=== PATIENT | female | born 1970 | race Caucasian/White ===

== ENCOUNTER 2016-06-03 15:36 | Emergency (ER) | payer SELFPAY ==
[~2016-06-03] VITALS: Ht 162.6 cm; Wt 60.5 kg
[~2016-06-03 15:36] MED LIST: IBUP600T26 PO; ONDA4 PO
[2016-06-03 15:38] VITALS: BP 142/90; PULSE 85; RESP 14; TEMP 98; O2SAT 98
[2016-06-04] MEDS ORDERED: MULTCHW27 PO (07:34)
[2016-06-04] MEDS ORDERED: IBUP-232 PO (07:35)
[2016-06-04] MEDS ORDERED: ZOFR4TAB3 SL (10:10)
[2016-06-04] MEDS ORDERED: IMOD2TAB3 PO (10:10)
[2016-06-04] MEDS ORDERED: POTA1TAB4 PO (10:10)
== END 2016-06-03 17:05 | disposition left against medical advice (07) ==
LOC: NED 15:36
DX: K92.9 Disease of digestive system, unspecified (principal)
CPT/HCPCS: 99281

== ENCOUNTER 2016-06-04 07:13 | Emergency (ER) | payer SELFPAY ==
[~2016-06-04] VITALS: Ht 162.6 cm; Wt 65.0 kg
[2016-06-04 07:15] VITALS: BP 182/108; PULSE 87; RESP 15; TEMP 97.4; O2SAT 97
[2016-06-04] MEDS ORDERED: MULTCHW27 PO (07:34)
[2016-06-04 07:35] VITALS: BP 167/103; PULSE 68; RESP 20; O2SAT 100
[2016-06-04] MEDS ORDERED: IBUP-232 PO (07:35)
[2016-06-04] MEDS ORDERED: ONDANSETRON HCL 4 MG/2 ML VIAL IV PUSH ONE (07:45)
[2016-06-04] MEDS ORDERED: SODIUM CHLOR 0.9% 1000 ML INJ 1,000 ML IV ONE (07:45)
--- NOTE | 2016-06-04 07:52 | PD ---
HPI Chief Complaint: GI Complaint Time Seen by Provider: 07:45 Travel History International Travel<30 days: No Contact w/Intl Traveler<30days: No Traveled to known affect area: No History of Present Illness HPI 46-year-old female with history of alcohol use, presents to the ER today because she states that she started having periumbilical cramping with nausea, vomiting, diarrhea starting yesterday. Denies any fevers, urinary symptoms, or any other symptoms. She does not know any sick contacts. Modifying Factors: None Associated Signs & Symptoms: Periumbilical abdominal pain, nausea, vomiting, diarrhea Risk Factors: None PFSH Past Medical History Arthritis: Yes Autoimmune Disease: No Cancer: No Cardiovascular Problems: No Chemotherapy: No Diminished Hearing: No Endocrine: No Gastrointestinal Disorders: Yes (HX E COLI) Genitourinary: Yes (PT STS "KIDNEY PROBLEMS") Headaches: Yes Immune Disorder: No Musculoskeletal: Yes Neurologic: No Psychiatric: No Reproductive: No Respiratory: No Pneumonia: Yes (?) Radiation Therapy: No ?: Not LMP: 2 MONTHS AGO : 3 Para: 1 : 2 Past Surgical History AICD: No Arteriovenous Shunt: No Body Medical Devices: "HYPERGLYCEMIA" Section: Yes (X 1) Gynecologic Surgery: Yes (C-SEC) Insulin Pump: No Joint Replacement: No Pacemaker: No Other Surgery: Yes Social History Alcohol Use: No Tobacco Use: Yes (1 PPD) Substance Use: No (HX OF COCAINE USE) Allergies-Medications (Allergen,Severity, Reaction): Coded Allergies: No Known Allergies (Verified , 06/04/16) Reported Meds & Prescriptions Reported Meds & Active Scripts Active Reported Ibuprofen 600 Mg Tab 600 Mg PO Q8HR PRN Multivitamin Gummies Adul (Multiple Vitamins W/ Minerals) 1 Chw Chw 1 Chew PO DAILY Review of Systems Except as stated in HPI: all other systems reviewed are Neg Physical Exam Narrative GENERAL: Well-nourished, well-developed middle-aged white female patient in no acute distress. SKIN: Warm and dry. HEAD: Normocephalic. EYES: No scleral icterus. No injection or drainage. NECK: Supple, trachea midline. CARDIOVASCULAR: Regular rate and rhythm without murmurs, gallops, or rubs. RESPIRATORY: Breath sounds equal bilaterally. No accessory muscle use. GASTROINTESTINAL: Abdomen soft, periumbilical mild tenderness without guarding or rebound, nondistended. MUSCULOSKELETAL: No cyanosis, or edema. BACK: Nontender without obvious deformity. No CVA tenderness. Data Data Last Documented VS Vital Signs Date Time Temp Pulse Resp B/P Pulse Ox O2 Delivery O2 Flow Rate FiO2 06/04/16 09:23 77 21 152/100 99 Room Air 06/04/16 07:15 97.4 Orders Complete Blood Count With Diff (06/04/16 07:40) Comprehensive Metabolic Panel (06/04/16 07:40) Lipase (06/04/16 07:40) Urinalysis - C+S If Indicated (06/04/16 07:40) Iv Access Insert/Monitor (06/04/16 07:40) Ecg Monitoring (06/04/16 07:40) Oximetry (06/04/16 07:40) Sodium Chloride 0.9% Flush (Ns Flush) (06/04/16 07:45) Sodium Chlor 0.9% 1000 Ml Inj (Ns 1000 M (06/04/16 07:45) Ondansetron Inj (Zofran Inj) (06/04/16 07:45) Ct Abd/Pel W Iv Contrast(Rout) (06/04/16 08:33) Ns + Kcl 20 Meq Inj (Ns + Kcl 20 Meq Inj (06/04/16 09:00) Iohexol 350 Inj (Omnipaque 350 Inj) (06/04/16 09:37) Labs Laboratory Tests Test 06/04/16 06/04/16 07:35 07:40 White Blood Count 12.6 TH/MM3 Red Blood Count 4.89 MIL/MM3 Hemoglobin 14.8 GM/DL Hematocrit 44.1 % Mean Corpuscular Volume 90.0 FL Mean Corpuscular Hemoglobin 30.2 PG Mean Corpuscular Hemoglobin 33.6 % Concent Red Cell Distribution Width 13.5 % Platelet Count 207 TH/MM3 Mean Platelet Volume 9.2 FL Neutrophils (%) (Auto) 80.6 % Lymphocytes (%) (Auto) 12.4 % Monocytes (%) (Auto) 4.9 % Eosinophils (%) (Auto) 1.4 % Basophils (%) (Auto) 0.7 % Neutrophils # (Auto) 10.2 TH/MM3 Lymphocytes # (Auto) 1.6 TH/MM3 Monocytes # (Auto) 0.6 TH/MM3 Eosinophils # (Auto) 0.2 TH/MM3 Basophils # (Auto) 0.1 TH/MM3 CBC Comment DIFF FINAL Differential Comment Sodium Level 141 MEQ/L Potassium Level 2.9 MEQ/L Chloride Level 106 MEQ/L Carbon Dioxide Level 27.5 MEQ/L Anion Gap 8 MEQ/L Blood Urea Nitrogen 9 MG/DL Creatinine 0.67 MG/DL Estimat Glomerular Filtration 94 ML/MIN Rate Random Glucose 87 MG/DL Calcium Level 9.0 MG/DL Total Bilirubin 0.5 MG/DL Aspartate Amino Transf 16 U/L (AST/SGOT) Alanine Aminotransferase 15 U/L (ALT/SGPT) Alkaline Phosphatase 73 U/L Total Protein 7.9 GM/DL Albumin 3.7 GM/DL Lipase 106 U/L Urine Color YELLOW Urine Turbidity CLEAR Urine pH 6.5 Urine Specific [place] 1.008 Urine Protein NEG mg/dL Urine Glucose (UA) NEG mg/dL Urine Ketones NEG mg/dL Urine Occult Blood NEG Urine Nitrite NEG Urine Bilirubin NEG Urine Urobilinogen LESS THAN 2.0 MG/DL Urine Leukocyte Esterase NEG Urine WBC 2 /hpf Urine Squamous Epithelial 1 /hpf Cells Microscopic Urinalysis Comment CULT NOT INDICATED MDM Medical Decision Making Medical Screen Exam Complete: Yes Emergency Medical Condition: Yes Medical Record Reviewed: Yes Interpretation(s) Laboratory Tests Test 06/04/16 07:35 White Blood Count 12.6 TH/MM3 (4.0-11.0) Neutrophils (%) (Auto) 80.6 % (16.0-70.0) Neutrophils # (Auto) 10.2 TH/MM3 (1.8-7.7) Potassium Level 2.9 MEQ/L (3.5-5.1) Last 24 hours Impressions Abdomen/Pelvis CT 06/04/16 0833 Signed Impressions: Service Date/Time: Saturday, June 04, 2016 09:30 - CONCLUSION: 1. No acute findings within the abdomen. Specifically no inflammatory changes are seen. No evidence for appendicitis. 2. There is recanalization of periumbilical veins which can be an early sign of portal hypertension. Liver has a slightly lobulated appearance that could indicate some early liver cirrhosis as well. Roger Julio MD Differential Diagnosis Nausea, vomiting, diarrhea, abdominal painsgastroenteritis versus pancreatitis versus gastritis versus metabolic issues versus dehydration Narrative Course Lab work is significant for leukocytosis and hypokalemia. IV potassium was given in the ER. CAT scan was done to rule out acute intra-abdominal processes and did not show any signs of acute processes. At this point, my plan would be to release her with symptomatic relief or nausea and vomiting and cramping abdominal pains. Follow-up with primary care physician as needed. Return for any worsening in symptoms as needed. The plan has been discussed with her and she states understanding. Diagnosis Primary Impression: UNSPECIFIED ABDOMINAL PAIN Med/Other Pt SpecificInfo: Prescription(s) given Scripts Potassium Chloride ER (K-Tab)20 Meq Tab20 Meq PO BID #10 TAB Ref 0 Prov:Milly De La Garza MD 06/04/16 Ondansetron Odt (Zofran Odt)4 Mg Tab4 Mg SL Q6HR PRN (Nausea/Vomiting) #5 TAB Ref 0 Prov:Milly De La Garza MD 06/04/16 Loperamide (Imodium A-D)2 Mg Tab2 Mg PO DIRECTED PRN (DIARRHEA) #15 TAB Ref 0 One tablet after each loose stool. Not to exceed 8 tablets per day. Prov:Milly De La Garza MD 06/04/16 Disposition: 01 DISCHARGE HOME Condition: Stable Milly De La Garza MD Jun 04, 2016 07:52
[2016-06-04 08:00] VITALS: O2SAT 100
[2016-06-04] MEDS: SODIUM CHLORIDE 0.9% FLUSH 5 ML FLUSH IVF PRN ×2 (08:04→09:07)
[2016-06-04 08:23] LABS: BLOOD, URINE NEG (NEG); GLUCOSE,URINE NEG (NEG); KETONE, URINE NEG (NEG); NITRITE,URINE NEG (NEG); PH, URINE 6.5 (5.0-8.5); SQUAMOUS EPITHELIAL CELL URINE 1 /hpf (0-5); URINE COLOR YELLOW (YELLW/STRAW)
[2016-06-04 08:24] LABS: AUTOMATED NEUTROPHIL # 10.2 TH/MM3 (1.8-7.7); BASOPHIL # 0.1 TH/MM3 (0-0.2); BASOPHIL % 0.7 % (0.0-2.0); EOSINOPHIL # 0.2 TH/MM3 (0-0.4); EOSINOPHIL % 1.4 % (0.0-4.0); HEMATOCRIT 44.1 % (35.0-46.0); HEMO FLAGS DIFF FINAL; LYMPH % 12.4 % (9.0-44.0); LYMPHOCYTE # 1.6 TH/MM3 (1.0-4.8); MEAN CORPUSCULAR HEMOGLOBIN 30.2 PG (27.0-34.0); MEAN CORPUSCULAR HGB CONC 33.6 % (32.0-36.0); MONO % 4.9 % (0.0-8.0); NEUT % 80.6 % (16.0-70.0); PLATELET COUNT 207 TH/MM3 (150-450); RED BLOOD COUNT 4.89 MIL/MM3 (4.00-5.30); RED CELL DISTRIBUTION WIDTH 13.5 % (11.6-17.2); WHITE BLOOD COUNT 12.6 TH/MM3 (4.0-11.0)
[2016-06-04 08:28] LABS: COMMENT (UR) CULT NOT INDICATED; CULTURE IF INDICATED CULT NOT INDICATED
[2016-06-04 08:47] LABS: ALT (GPT) 15 U/L (10-53); ANION GAP 8 MEQ/L (5-15); AST (GOT) 16 U/L (15-37); BICARBONATE 27.5 MEQ/L (21.0-32.0); BLOOD UREA NITROGEN 9 MG/DL (7-18); CHLORIDE 106 MEQ/L (98-107); GLOMERULAR FILTRATION RATE 94 ML/MIN (>89); SODIUM (NA) 141 MEQ/L (136-145)
[2016-06-04 08:50] LABS: POTASSIUM 2.9 MEQ/L (3.5-5.1)
[2016-06-04 08:55] LABS: ALKALINE PHOSPHATASE 73 U/L (45-117); TOTAL BILIRUBIN ADULT 0.5 MG/DL (0.2-1.0)
[2016-06-04] MEDS ORDERED: NS + KCL 20 MEQ INJ 1,000 ML IV ONE (09:00)
[2016-06-04 09:23] VITALS: BP 152/100; PULSE 77; RESP 21; O2SAT 99
[2016-06-04] MEDS ORDERED: IOHEXOL 350 MG/ML 10 ML VIAL (for RAD DIAG) IV ONE (09:37)
--- NOTE | 2016-06-04 09:56 | RADRPT ---
EXAM DATE/TIME: 06/04/2016 09:30 [facility] COMPARISON: CT ABDOMEN & PELVIS W/O CONTRAST, February 22, 2010, 15:10. INDICATIONS : [place]-umbilical cramping with nausea, vomiting, and diarrhea since yesterday. IV CONTRAST: 92 cc Omnipaque 350 (iohexol) IV ORAL CONTRAST: No oral contrast ingested. RADIATION DOSE: 5.28 CTDIvol (mGy) MEDICAL HISTORY : None SURGICAL HISTORY : section. ENCOUNTER: Initial ACUITY: 1 day PAIN SCALE: 5/10 LOCATION: [place]-umbilical TECHNIQUE: Volumetric scanning of the abdomen and pelvis was performed. Using automated exposure control and ad justment of the mA and/or kV according to patient size, radiation dose was kept as low as reasonably achievable to obtain optimal diagnostic quality images. FINDINGS: Lung bases demonstrate some dependent atelectasis and subsegmental atelectasis or scarring in the rig ht middle. Mild fatty liver. Spleen, adrenals and pancreas unremarkable. Exophytic cyst lower pole left kidney. Mild right renal atrophic change. No calcified gallstones or biliary ductal dilatation. No bowel obstruction. No free fluid or free air . There is some recanalization of the periumbilical veins which can be seen with early changes of funmi l hypertension. CONCLUSION: 1. No acute findings within the abdomen. Specifically no inflammatory changes are seen. No evidence f or appendicitis. 2. There is recanalization of periumbilical veins which can be an early sign of portal hypertension. Liver has a slightly lobulated appearance that could indicate some early liver cirrhosis as well. Roger Julio MD on June 04, 2016 at 9:47 Board Certified Radiologist. This report was verified electronically.
[2016-06-04 10:00] VITALS: BP 159/97; PULSE 78; RESP 24; O2SAT 99
[2016-06-04] MEDS ORDERED: IMOD2TAB3 PO (10:10)
[2016-06-04] MEDS ORDERED: ZOFR4TAB3 SL (10:10)
[2016-06-04] MEDS ORDERED: POTA1TAB4 PO (10:10)
[2016-06-04 11:00] VITALS: BP 152/89; PULSE 84; RESP 25; O2SAT 96
== END 2016-06-04 11:51 | disposition home or self-care (01) ==
LOC: NEPC 07:13
DX: R10.9 Unspecified abdominal pain (principal); D72.829 Elevated white blood cell count, unspecified; E87.6 Hypokalemia; R11.2 Nausea with vomiting, unspecified; R19.7 Diarrhea, unspecified; F17.200 Nicotine dependence, unspecified, uncomplicated; Z87.39 Personal history of other diseases of the musculoskeletal system and connective tissue; Z87.19 Personal history of other diseases of the digestive system
CPT/HCPCS: 74177; 80053; 81001; 83690; 85025; 96361; 96374; 99284; J2405; J3480; J7030; Q9967

== ENCOUNTER 2016-06-27 08:15 | Emergency (ER) | payer SELFPAY ==
[~2016-06-27] VITALS: Ht 162.6 cm; Wt 59.1 kg
[~2016-06-27 08:15] MED LIST changes: +IBUP-232 PO; -IBUP600T26 PO; +IMOD2TAB3 PO; +MULTCHW27 PO; -ONDA4 PO; +POTA1TAB4 PO; +ZOFR4TAB3 SL
[2016-06-27 08:20] VITALS: BP 149/104; PULSE 79; RESP 16; TEMP 97.4; O2SAT 100
--- NOTE | 2016-06-27 08:33 | PD ---
HPI Chief Complaint: [employer] Problem/Complaint Time Seen by Provider: 08:33 Travel History International Travel<30 days: No Contact w/Intl Traveler<30days: No Traveled to known affect area: No History of Present Illness HPI 46-year-old female came to the emergency room with history of right lower quadrant pain for past 1 week. Patient describes the pain to be nagging and always there. No history of vomiting or diarrhea. She has been somewhat constipated for past 1 week. She says she has been moving her bowels every other day but does not feel like she is cleaning herself up completely. No history of fever or chills. Her appetite has been great as per her. Her mother and grandmother from ovarian cancer which is what is bothering her a lot. Vital signs were stable. Patient does not have a primary care or [facility] physician. She describes the pain to be 4 out of 10. No radiation of the pain. PFSH Past Medical History Narrative Medical Mr. for past medical, social and family history has been reviewed from the nursing note. Arthritis: Yes Autoimmune Disease: No Cancer: No Cardiovascular Problems: No Chemotherapy: No Diminished Hearing: No Endocrine: No Gastrointestinal Disorders: Yes (HX E COLI) Genitourinary: Yes (PT STS "KIDNEY PROBLEMS") Headaches: Yes Immune Disorder: No Musculoskeletal: Yes Neurologic: No Psychiatric: No Reproductive: No Respiratory: No Pneumonia: Yes (?) Radiation Therapy: No ?: Not LMP: 3 years ago : 3 Para: 1 : 2 Past Surgical History AICD: No Arteriovenous Shunt: No Body Medical Devices: "HYPERGLYCEMIA" Section: Yes (X 1) Gynecologic Surgery: Yes (C-SEC) Insulin Pump: No Joint Replacement: No Pacemaker: No Other Surgery: Yes Family History Narrative Family History Patient's mother and maternal grandmother of ovarian cancer. Social History Alcohol Use: No Tobacco Use: Yes (1 PPD) Substance Use: No (HX OF COCAINE USE) Allergies-Medications (Allergen,Severity, Reaction): Coded Allergies: No Known Allergies (Verified , 06/27/16) Comments No known drug allergies. Reported Meds & Prescriptions Reported Meds & Active Scripts Active No Active Prescriptions or Reported Medications Narrative Medication List of her home medications reviewed from the nursing note. Review of Systems Except as stated in HPI: all other systems reviewed are Neg Physical Exam Narrative GENERAL: Awake, alert, anxious, no obvious distress SKIN: Warm and dry. HEAD: Atraumatic. Normocephalic. EYES: Pupils equal and round. No scleral icterus. No injection or drainage. ENT: No nasal bleeding or discharge. Mucous membranes pink and moist. NECK: Trachea midline. No JVD. CARDIOVASCULAR: Regular rate and rhythm. No murmur appreciated. RESPIRATORY: No accessory muscle use. Clear to auscultation. Breath sounds equal bilaterally. GASTROINTESTINAL: Abdomen soft, right lower quadrant tenderness on moderate palpation, nondistended. Hepatic and splenic margins not palpable. MUSCULOSKELETAL: No obvious deformities. No clubbing. No cyanosis. No edema. NEUROLOGICAL: Awake and alert. No obvious cranial nerve deficits. Motor grossly within normal limits. Normal speech. PSYCHIATRIC: Appropriate mood and affect; insight and judgment normal. Data Data Last Documented VS Orders Urinalysis - C+S If Indicated (06/27/16 08:19) Complete Blood Count With Diff (06/27/16 08:41) Comprehensive Metabolic Panel (06/27/16 08:41) Lipase (06/27/16 08:41) Iv Access Insert/Monitor (06/27/16 08:41) Ecg Monitoring (06/27/16 08:41) Oximetry (06/27/16 08:41) Sodium Chloride 0.9% Flush (Ns Flush) (06/27/16 08:45) C-Reactive Protein (Crp) (06/27/16 08:41) Ed Urine Pregnancytest Poc (06/27/16 08:41) Potassium Chloride (Kcl) (06/27/16 09:30) Ibuprofen (Motrin) (06/27/16 09:30) Us Pelvis Comp W Doppler (06/27/16 ) Labs MDM Medical Decision Making Medical Screen Exam Complete: Yes Emergency Medical Condition: Yes Medical Record Reviewed: Yes Differential Diagnosis Appendicitis, ovarian torsion, ovarian tumor, UTI, abdominal pain NOS Narrative Course 9:26 AM most of her blood work results are back except for the CRP. So far everything is within acceptable limit. UA is negative for UTI. Given her strong family history of ovarian cancer I have ordered a pelvic ultrasound. Awaiting for the ultrasound to be done and resulted. I'll give her Motrin for pain. Potassium was low and I have ordered replacement. 9:50 AM the camera technician is here to do the ultrasound. She let me know the patient had a CAT scan done 2 weeks ago of her abdomen and pelvis. That was within normal limits except for a renal cyst on the left side. I was unaware of this. However at this point waiting for the ultrasound to be completed and resulted. She will be discharged home if the ultrasound is within normal limits. 10:42 AM CRP is back and is slightly elevated. The camera technician left. She told me that she saw a small cyst in her ovary and a calcified fibroid. Awaiting for the official read. Procedures EKG Prior to Arrival: No Diagnosis Primary Impression: Ovarian cyst Qualified Code: N83.201 - Cyst of right ovary Additional Impressions: Pelvic pain Fibroid Qualified Code: D25.1 - Intramural leiomyoma of uterus Referrals: Sophia Hamlin MD 1 week Additional Instructions: Please follow-up with a [facility] specialist. If you don't have your own name has been provided to you. Call the number that has been provided to make an appointment. Take Motrin or Tylenol for pain. Return to the ER if the condition worsens or any other new concerns. Med/Other Pt SpecificInfo: No Change to Meds Scripts No Active Prescriptions or Reported Meds Disposition: 01 DISCHARGE HOME Condition: Stable Helene Fang MD Jun 27, 2016 08:33 Eosinophils # (Auto) 0.1 TH/MM3 Basophils # (Auto) 0.0 TH/MM3 CBC Comment DIFF FINAL Differential Comment Urine Collection Type CLEAN CATCH Urine Color YELLOW Urine Turbidity CLEAR Urine pH 6.0 Urine Specific [place] 1.008 Urine Protein NEG mg/dL Urine Glucose (UA) NEG mg/dL Urine Ketones NEG mg/dL Urine Occult Blood NEG Urine Nitrite NEG Urine Bilirubin NEG Urine Leukocyte Esterase TRACE Urine WBC 6-8 /hpf Urine Squamous Epithelial > 8 /hpf Cells Urine Bacteria FEW /hpf Microscopic Urinalysis Comment CULT NOT INDICATED Urine Collection Time 08:50 Sodium Level 144 MEQ/L Potassium Level 3.1 MEQ/L Chloride Level 106 MEQ/L Carbon Dioxide Level 30.5 MEQ/L Anion Gap 8 MEQ/L Blood Urea Nitrogen 9 MG/DL Creatinine 0.62 MG/DL Estimat Glomerular Filtration 103 ML/MIN Rate Random Glucose 96 MG/DL Calcium Level 8.9 MG/DL Total Bilirubin 0.4 MG/DL Aspartate Amino Transf 15 U/L (AST/SGOT) Alanine Aminotransferase 18 U/L (ALT/SGPT) Alkaline Phosphatase 69 U/L C-Reactive Protein 0.37 MG/DL Total Protein 7.6 GM/DL Albumin 3.3 GM/DL Lipase 128 U/L [facility] Medical Decision Making Medical Screen Exam Complete: Yes Emergency Medical Condition: Yes Medical Record Reviewed: Yes Differential Diagnosis Appendicitis, ovarian torsion, ovarian tumor, UTI, abdominal pain NOS Narrative Course 9:26 AM most of her blood work results are back except for the CRP. So far everything is within acceptable limit. UA is negative for UTI. Given her strong family history of ovarian cancer I have ordered a pelvic ultrasound. Awaiting for the ultrasound to be done and resulted. I'll give her Motrin for pain. Potassium was low and I have ordered replacement. 9:50 AM the camera technician is here to do the ultrasound. She will admit me know the patient had a CAT scan done 2 weeks ago of her abdomen and pelvis. That was within normal limits except for a renal cyst on the left side. I was aware of this. However at this point waiting for the ultrasound to be done and resulted. She will be discharged home if the ultrasound is within normal limits. 10:42 AM CRP is back and is slightly elevated. The camera technician left. She told me that she saw a small cyst in her ovary and a calcified fibroid. Awaiting for the official read. Procedures EKG Prior to Arrival: No Diagnosis Primary Impression: Ovarian cyst Qualified Code: N83.201 - Cyst of right ovary Additional Impressions: Pelvic pain Fibroid Qualified Code: D25.1 - Intramural leiomyoma of uterus Referrals: Sophia Hamlin MD 1 week Additional Instructions: Please follow-up with a [facility] specialist. If you don't have your own name has been provided to you. Call the number that has been provided to make an appointment. Take Motrin or Tylenol for pain. Return to the ER if the condition worsens or any other new concerns. Med/Other Pt SpecificInfo: No Change to Meds Scripts No Active Prescriptions or Reported Meds Disposition: 01 DISCHARGE HOME Condition: Stable Helene Fang MD Jun 27, 2016 08:33
[2016-06-27] MEDS ORDERED: SODIUM CHLORIDE 0.9% FLUSH 5 ML FLUSH IVF PRN (08:45)
[2016-06-27 08:58] LABS: AUTOMATED NEUTROPHIL # 6.8 TH/MM3 (1.8-7.7); BASOPHIL % 0.4 % (0.0-2.0); BLOOD, URINE NEG (NEG); EOSINOPHIL # 0.1 TH/MM3 (0-0.4); EOSINOPHIL % 1.4 % (0.0-4.0); GLUCOSE,URINE NEG (NEG); HEMATOCRIT 42.1 % (35.0-46.0); HEMO FLAGS DIFF FINAL; KETONE, URINE NEG (NEG); LYMPH % 13.9 % (9.0-44.0); LYMPHOCYTE # 1.2 TH/MM3 (1.0-4.8); MEAN CELL VOLUME 88.6 FL (80.0-100.0); MEAN CORPUSCULAR HEMOGLOBIN 29.2 PG (27.0-34.0); MONO % 3.6 % (0.0-8.0); NEUT % 80.7 % (16.0-70.0); NITRITE,URINE NEG (NEG); PLATELET COUNT 200 TH/MM3 (150-450); RED BLOOD COUNT 4.75 MIL/MM3 (4.00-5.30); RED CELL DISTRIBUTION WIDTH 13.1 % (11.6-17.2); WHITE BLOOD COUNT 8.4 TH/MM3 (4.0-11.0)
[2016-06-27 09:06] LABS: CHLORIDE 106 MEQ/L (98-107); POTASSIUM 3.1 MEQ/L (3.5-5.1); SODIUM (NA) 144 MEQ/L (136-145)
[2016-06-27 09:07] LABS: METHOD OF COLLECTION CLEAN CATCH; URINE COLOR YELLOW (YELLW/STRAW)
[2016-06-27 09:08] LABS: BACTERIA, URINE FEW /hpf; COMMENT (UR) CULT NOT INDICATED; CULTURE IF INDICATED CULT NOT INDICATED; SQUAMOUS EPITHELIAL CELL URINE > 8 /hpf (0-5)
[2016-06-27 09:10] LABS: ANION GAP 8 MEQ/L (5-15); BICARBONATE 30.5 MEQ/L (21.0-32.0); BLOOD UREA NITROGEN 9 MG/DL (7-18)
[2016-06-27 09:12] LABS: ALT (GPT) 18 U/L (10-53); AST (GOT) 15 U/L (15-37); GLOMERULAR FILTRATION RATE 103 ML/MIN (>89)
[2016-06-27 09:14] LABS: TOTAL BILIRUBIN ADULT 0.4 MG/DL (0.2-1.0)
[2016-06-27 09:15] LABS: ALKALINE PHOSPHATASE 69 U/L (45-117)
[2016-06-27] MEDS ORDERED: POTASSIUM CHLORIDE 20 MEQ CONTROLLED RELEASE TAB PO ONE (09:30)
[2016-06-27] MEDS ORDERED: IBUPROFEN 600 MG TAB PO ONE (09:30)
[2016-06-27 09:40] VITALS: BP 131/85; PULSE 75; RESP 14; O2SAT 99
--- NOTE | 2016-06-27 10:59 | RADHPO ---
EXAM DATE/TIME: 06/27/2016 14:49 [facility] COMPARISON: No previous studies available for comparison. INDICATIONS : Right pelvic pain. MEDICAL HISTORY : Pneumonia. Hypoglycemia. Renal disease. Arthritis. E-Coli. SURGICAL HISTORY : section. Right knee surgery. ENCOUNTER: Initial ACUITY: 1 week PAIN SCORE: 6/10 LOCATION: Right pelvis MEASUREMENTS: UTERUS: 7.7 x 4.3 x 6.7 cm ENDOMETRIAL STRIPE: 13 mm RIGHT OVARY: 2.4 x 2.1 x 1.6 cm LEFT OVARY: 2.3 x 1.0 x 1.3 cm FINDINGS: UTERUS: The myometrium has homogeneous echotexture.The endometrial cavity is empty. On the right side of the fundus appears to be a hypoechoic mass measuring 1.5 x 1.5 cm suggestive of a fibroid. No definite en croachment on the endometrial cavity. RIGHT OVARY: Cyst associated with the right ovary measuring 1.2 cm. Good blood flow to ovary LEFT OVARY: Ovary contains no mass or significant cystic lesion. Good blood flow to ovary MISCELLANEOUS: No free fluid. CONCLUSION: 1. There is a 1.5 cm fibroid in the right fundus of the uterus. 2. There is a 1.2 cm right ovarian cyst. 3. Otherwise, unremarkable exam for patient's age. Arvin Aguilar MD on June 27, 2016 at 10:55 Board Certified Radiologist. This report was verified electronically.
[2016-06-27 11:10] VITALS: BP 125/76; PULSE 82; RESP 16; O2SAT 98
== END 2016-06-27 11:10 | disposition home or self-care (01) ==
LOC: PHED 08:15
DX: N83.201 Unspecified ovarian cyst, right side (principal); D25.1 Intramural leiomyoma of uterus
CPT/HCPCS: 76856; 80053; 81001; 83690; 84703; 85025; 86140; 93975

== ENCOUNTER 2016-12-09 16:34 | Emergency (ER) | payer SELFPAY ==
[~2016-12-09] VITALS: Ht 162.6 cm; Wt 60.0 kg
[2016-12-09 16:36] VITALS: BP 189/112; PULSE 99; RESP 16; TEMP 98.4; O2SAT 99
--- NOTE | 2016-12-09 17:17 | PD ---
Physical Exam Time Seen by Provider: 17:17 Narrative 46 y/o female here with abdominal pain. Vital signs reviewed. Seen at triage desk. Awaiting bed placement. Data Data Last Documented VS Vital Signs Date Time Temp Pulse Resp B/P Pulse Ox O2 Delivery O2 Flow Rate FiO2 12/09/16 16:36 98.4 99 16 189/112 99 MDM Medical Record Reviewed: Yes Supervised Visit with PAT: No Scripts No Active Prescriptions or Reported Meds Bruno Evans Dec 09, 2016 17:17
[2016-12-09 18:04] VITALS: BP 197/103
== END 2016-12-09 19:14 | disposition left against medical advice (07) ==
LOC: NED 16:34
DX: R10.9 Unspecified abdominal pain (principal); Z53.21 Procedure and treatment not carried out due to patient leaving prior to being seen by health care provider
CPT/HCPCS: 99281

== ENCOUNTER 2016-12-10 08:03 | Emergency (ER) | payer SELFPAY ==
[~2016-12-10] VITALS: Ht 162.6 cm; Wt 65.0 kg
[2016-12-10 08:10] VITALS: BP 197/124; PULSE 101; RESP 16; TEMP 97.6; O2SAT 100
--- NOTE | 2016-12-10 08:40 | PD ---
HPI Chief Complaint: Abdominal Pain Time Seen by Provider: 08:30 Travel History International Travel<30 days: No Contact w/Intl Traveler<30days: No Traveled to known affect area: No History of Present Illness HPI The patient was seen and examined in the presence of the nurse. She complains of abdominal pain. Location is right lower quadrant. Severity is moderate. Duration one week. No alleviating factors. She is not having vaginal bleeding or discharge or urinary complaints. Denies fever. Was diagnosed with ovarian cysts 6 months ago PFS Past Medical History Arthritis: Yes Autoimmune Disease: No Cancer: No Cardiovascular Problems: No Chemotherapy: No Diminished Hearing: No Endocrine: No Gastrointestinal Disorders: Yes (HX E-coli) Genitourinary: Yes (Reports kidney issues R/T E-coli infection) Headaches: Yes Immune Disorder: No Musculoskeletal: Yes Neurologic: No Psychiatric: No Reproductive: No Respiratory: No Pneumonia: Yes Radiation Therapy: No ?: Not LMP: 4 years ago Menopausal: Yes : 3 Para: 1 : 2 Past Surgical History AICD: No Arteriovenous Shunt: No Body Medical Devices: "HYPERGLYCEMIA" Section: Yes (X's 1) Gynecologic Surgery: Yes (C-SEC) Insulin Pump: No Joint Replacement: No Pacemaker: No Other Surgery: Yes Social History Alcohol Use: No Tobacco Use: Yes (1 PPD) Substance Use: No (Denies today) Allergies-Medications (Allergen,Severity, Reaction): Coded Allergies: No Known Allergies (Verified , 12/10/16) Reported Meds & Prescriptions Reported Meds & Active Scripts Active No Active Prescriptions or Reported Medications Review of Systems General / Constitutional: No: Fever Eyes: No: Visual changes HENT: No: Headaches Cardiovascular: No: Chest Pain or Discomfort Respiratory: No: Shortness of Breath Gastrointestinal: Positive: Nausea, Abdominal Pain Genitourinary: Positive: Pelvic Pain, No: Dysuria Musculoskeletal: No: Pain Skin: No Rash Neurologic: No: Weakness Psychiatric: No: Depression Endocrine: No: Polydipsia Hematologic/Lymphatic: No: Easy Bruising Physical Exam Narrative GENERAL: Well-nourished, well-developed patient with abdominal pain. SKIN: Focused skin assessment reveals no rash and nodules. Skin is Warm and dry. HEAD: Atraumatic. Normocephalic. EYES: Pupils equal and round. No scleral icterus. No injection or drainage. ENT: No nasal bleeding or discharge. Mucous membranes pink and moist. NECK: Trachea midline. No JVD. CARDIOVASCULAR: Regular rate and rhythm. No murmur appreciated. RESPIRATORY: No accessory muscle use. Clear to auscultation. Breath sounds equal bilaterally. GASTROINTESTINAL: Abdomen soft, right lower quadrant is tender without rebound or guarding, nondistended. Hepatic and splenic margins not palpable. MUSCULOSKELETAL: No obvious deformities. No clubbing. No cyanosis. No edema. NEUROLOGICAL: Awake and alert. No obvious cranial nerve deficits. Motor grossly within normal limits. Normal speech. PSYCHIATRIC: Appropriate mood and affect; insight and judgment normal. Data Data Last Documented VS Vital Signs Date Time Temp Pulse Resp B/P Pulse Ox O2 Delivery O2 Flow Rate FiO2 12/10/16 11:00 74 16 176/96 99 Room Air 12/10/16 08:10 97.6 Orders Ed Urine Pregnancytest Poc (12/10/16 08:34) Complete Blood Count With Diff (12/10/16 08:34) Basic Metabolic Panel (Bmp) (12/10/16 08:34) Iv Access Insert/Monitor (12/10/16 08:34) Ct Abd/Pel W Iv Contrast(Rout) (12/10/16 ) Prothrombin Time / Inr (Pt) (12/10/16 08:35) Act Partial Throm Time (Ptt) (12/10/16 08:35) Iohexol 350 Inj (Omnipaque 350 Inj) (12/10/16 09:27) Labs Laboratory Tests Test 12/10/16 08:41 White Blood Count 9.0 TH/MM3 Red Blood Count 4.46 MIL/MM3 Hemoglobin 14.1 GM/DL Hematocrit 41.2 % Mean Corpuscular Volume 92.4 FL Mean Corpuscular Hemoglobin 31.5 PG Mean Corpuscular Hemoglobin 34.1 % Concent Red Cell Distribution Width 13.1 % Platelet Count 179 TH/MM3 Mean Platelet Volume 8.3 FL Neutrophils (%) (Auto) 70.7 % Lymphocytes (%) (Auto) 18.3 % Monocytes (%) (Auto) 7.7 % Eosinophils (%) (Auto) 2.4 % Basophils (%) (Auto) 0.9 % Neutrophils # (Auto) 6.4 TH/MM3 Lymphocytes # (Auto) 1.6 TH/MM3 Monocytes # (Auto) 0.7 TH/MM3 Eosinophils # (Auto) 0.2 TH/MM3 Basophils # (Auto) 0.1 TH/MM3 CBC Comment DIFF FINAL Differential Comment Prothrombin Time 10.0 SEC Prothromb Time International 0.9 RATIO Ratio Activated Partial 26.0 SEC Thromboplast Time Sodium Level 142 MEQ/L Potassium Level 3.3 MEQ/L Chloride Level 108 MEQ/L Carbon Dioxide Level 28.2 MEQ/L Anion Gap 6 MEQ/L Blood Urea Nitrogen 11 MG/DL Creatinine 0.63 MG/DL Estimat Glomerular Filtration 101 ML/MIN Rate Random Glucose 82 MG/DL Calcium Level 8.4 MG/DL [facility] Medical Decision Making Medical Screen Exam Complete: Yes Emergency Medical Condition: Yes Medical Record Reviewed: Yes Differential Diagnosis Appendicitis, colitis, ovarian cystic disease Narrative Course I have reviewed the patient's electronic medical record. Reviewed her ultrasound from June 2016 showing small fibroid and ovarian cyst IV placed CBC is normal metabolic profile is normal Coagulation studies are normal Urine is negative CT of abdomen and pelvis with IV contrast shows nothing emergent. I reviewed the results with the patient. I recommended she get primary care follow-up and discuss all her previous imaging studies. Diagnosis Primary Impression: Abdominal pain Qualified Code: R10.31 - Right lower quadrant abdominal pain Additional Instructions: The patient was advised to follow up with their physician and return if they worsen. Med/Other Pt SpecificInfo: Other Scripts No Active Prescriptions or Reported Meds Disposition: 01 DISCHARGE HOME Condition: Stable Fam Henderson MD Dec 10, 2016 08:40
[2016-12-10 08:52] LABS: AUTOMATED NEUTROPHIL # 6.4 TH/MM3 (1.8-7.7); BASOPHIL # 0.1 TH/MM3 (0-0.2); BASOPHIL % 0.9 % (0.0-2.0); EOSINOPHIL # 0.2 TH/MM3 (0-0.4); EOSINOPHIL % 2.4 % (0.0-4.0); HEMATOCRIT 41.2 % (35.0-46.0); HEMO FLAGS DIFF FINAL; LYMPH % 18.3 % (9.0-44.0); LYMPHOCYTE # 1.6 TH/MM3 (1.0-4.8); MEAN CELL VOLUME 92.4 FL (80.0-100.0); MEAN CORPUSCULAR HEMOGLOBIN 31.5 PG (27.0-34.0); MEAN CORPUSCULAR HGB CONC 34.1 % (32.0-36.0); MONO % 7.7 % (0.0-8.0); NEUT % 70.7 % (16.0-70.0); PLATELET COUNT 179 TH/MM3 (150-450); RED BLOOD COUNT 4.46 MIL/MM3 (4.00-5.30); RED CELL DISTRIBUTION WIDTH 13.1 % (11.6-17.2)
[2016-12-10 09:04] LABS: INTERNATIONAL NORMALIZED RATIO 0.9 RATIO
[2016-12-10 09:15] LABS: BICARBONATE 28.2 MEQ/L (21.0-32.0); POTASSIUM 3.3 MEQ/L (3.5-5.1)
[2016-12-10] MEDS ORDERED: IOHEXOL 350 MG/ML 10 ML VIAL (for RAD DIAG) IV ONE (09:27)
--- NOTE | 2016-12-10 09:38 | RADRPT ---
EXAM DATE/TIME: 12/10/2016 09:11 [facility] COMPARISON: CT ABDOMEN & PELVIS W CONTRAST, June 04, 2016, 9:30. INDICATIONS : Right lower quadrant pain, constipation. IV CONTRAST: 90 cc Omnipaque 350 (iohexol) IV ORAL CONTRAST: No oral contrast ingested. RADIATION DOSE: 9.96 CTDIvol (mGy) MEDICAL HISTORY : Uterine fibroids. SURGICAL HISTORY : None. ENCOUNTER: Initial ACUITY: 1 week PAIN SCALE: 7/10 LOCATION: Right lower quadrant TECHNIQUE: Volumetric scanning of the abdomen and pelvis was performed. Using automated exposure control and ad justment of the mA and/or kV according to patient size, radiation dose was kept as low as reasonably achievable to obtain optimal diagnostic quality images. DICOM format image data is available electro nically for review and comparison. FINDINGS: LOWER LUNGS: The visualized lower lungs are clear. LIVER: Homogeneous density without lesion. There is no dilation of the biliary tree. No calcified gallston es. SPLEEN: Normal size without lesion. PANCREAS: Within normal limits. KIDNEYS: Normal in size and shape. There is no mass, stone or hydronephrosis. 3 cm simple cyst of the lateral cortical margin of left kidney stable. ADRENAL GLANDS: Within normal limits. VASCULAR: There is no aortic aneurysm. BOWEL/MESENTERY: The stomach, small bowel, and colon demonstrate no acute abnormality. There is no free intraperitone al air or fluid. ABDOMINAL WALL: Within normal limits. RETROPERITONEUM: There is no lymphadenopathy. BLADDER: No wall thickening or mass. REPRODUCTIVE: Within normal limits. INGUINAL: There is no lymphadenopathy or hernia. MUSCULOSKELETAL: Within normal limits for patient age. CONCLUSION: No acute disease. No significant change has occurred. Walter Cunha MD on December 10, 2016 at 9:30 Board Certified Radiologist. This report was verified electronically.
[2016-12-10 09:50] VITALS: BP 167/98; PULSE 74; RESP 16; O2SAT 99
[2016-12-10 11:00] VITALS: BP 176/96; PULSE 74; RESP 16; O2SAT 99
== END 2016-12-10 11:27 | disposition home or self-care (01) ==
LOC: NEPE 08:03
DX: R10.31 Right lower quadrant pain (principal); F17.210 Nicotine dependence, cigarettes, uncomplicated
CPT/HCPCS: 74177; 80048; 84703; 85025; 85610; 85730; 99285; Q9967

== ENCOUNTER 2017-02-17 14:59 | Emergency (ER) | payer OTHER ==
[~2017-02-17] VITALS: Ht 160 cm; Wt 60.5 kg
[2017-02-17 15:01] VITALS: BP 129/78; PULSE 111; RESP 20; TEMP 98; O2SAT 100
[2017-02-17] MEDS ORDERED: AMLO5TAB2 PO (18:07)
[2017-02-17] MEDS ORDERED: IBUP-232 PO (18:08)
[2017-02-17 18:09] VITALS: BP 139/86; PULSE 99; RESP 19; TEMP 98.7; O2SAT 97
[2017-02-17] MEDS ORDERED: SODIUM CHLORIDE 0.9% FLUSH 10 ML FLUSH IV FLUSH PRN (18:15)
--- NOTE | 2017-02-17 18:25 | PD ---
HPI Chief Complaint: Abdominal Pain Time Seen by Provider: 17:53 Travel History International Travel<30 days: No Contact w/Intl Traveler<30days: No Traveled to known affect area: No History of Present Illness HPI 46-year-old female complains of generalized malaise and weakness, headache, right low quadrant abdominal pain. Patient states that she has recurrent right low quadrant abdominal pain for the past few months. Patient has been seen in emergency room twice for the abdominal pain. Patient had CT abdomen pelvis twice and pelvic ultrasound done in the past. CT Scan abdomen and pelvis negative acute pathology. Pelvic ultrasound done in June 2016 shows 1.5 cm uterine fibroid and 1.2 cm right ovarian cyst. Patient was advised to follow- up local physician. Patient started having elevated blood pressures November of this year. Patient was seen in emergency room and advised to follow local physician. Patient also complains of intermittent headache and has been taking Tylenol for that. Patient was seen by local clinic and started on amlodipine 5 mg daily last week. Patient states that her blood pressure still elevated and she double up on amlodipine to 10 mg daily started today. Patient states the headache mild aching headache diffuse over the head. Patient denies any visual change. Patient denies any neck pain. Patient denies any chest pain or shortness of breath. Patient denies abdominal pain. Patient complains facial flushing and tingling sensation normal upper extremity intermittently. Patient denies any nausea vomiting diarrhea. Patient denies any dysuria or frequency. Patient denies any vaginal discharge or bleeding. PFSH Past Medical History Arthritis: Yes Autoimmune Disease: No Cancer: No Cardiovascular Problems: No Chemotherapy: No Diminished Hearing: No Endocrine: No Gastrointestinal Disorders: Yes (HX E-coli) Genitourinary: Yes (Reports kidney issues R/T E-coli infection) Headaches: Yes Hypertension: Yes Immune Disorder: No Musculoskeletal: Yes Neurologic: No Psychiatric: No Reproductive: No Respiratory: No Pneumonia: Yes Radiation Therapy: No ?: Not LMP: 5 YRS AGO Menopausal: Yes : 3 Para: 1 : 2 Past Surgical History AICD: No Arteriovenous Shunt: No Body Medical Devices: "HYPOGLYCEMIA" Section: Yes (X's 1) Gynecologic Surgery: Yes (C-SEC) Insulin Pump: No Joint Replacement: No Pacemaker: No Other Surgery: Yes Social History Alcohol Use: No Tobacco Use: Yes (1 PPD) Substance Use: No (Denies today) Allergies-Medications (Allergen,Severity, Reaction): Coded Allergies: No Known Allergies (Verified , 02/17/17) Reported Meds & Prescriptions Reported Meds & Active Scripts Active Reported Ibuprofen 600 Mg Tab 600 Mg PO Q6H PRN Amlodipine (Amlodipine Besylate) 5 Mg Tab 5 Mg PO DAILY Review of Systems General / Constitutional: No: Fever Eyes: No: Visual changes HENT: Positive: Headaches Cardiovascular: No: Chest Pain or Discomfort Respiratory: No: Shortness of Breath Gastrointestinal: Positive: Abdominal Pain Genitourinary: No: Dysuria Musculoskeletal: No: Pain Skin: No Rash Neurologic: No: Weakness Psychiatric: No: Depression Endocrine: No: Polydipsia Hematologic/Lymphatic: No: Easy Bruising Physical Exam Narrative GENERAL: Well-nourished, well-developed patient. SKIN: Focused skin assessment warm/dry. HEAD: Normocephalic. EYES: No scleral icterus. No injection or drainage. Pupils 3 mm equal reactive. NECK: Supple, trachea midline. No JVD or lymphadenopathy. No meningismus CARDIOVASCULAR: Regular rate and rhythm without murmurs, gallops, or rubs. RESPIRATORY: Breath sounds equal bilaterally. No accessory muscle use. GASTROINTESTINAL: Abdomen soft, nondistended. Patient has mild tenderness on palpation right lower quadrant of the abdomen. No rebound tenderness. No mass. MUSCULOSKELETAL: No cyanosis, or edema. BACK: Nontender without obvious deformity. No CVA tenderness. Neurologic exam normal. Data Data Last Documented VS Vital Signs Date Time Temp Pulse Resp B/P (MAP) Pulse Ox O2 Delivery O2 Flow Rate FiO2 02/17/17 18:30 98.7 99 19 139/86 (103) 96 Room Air Orders Orders Complete Blood Count With Diff (02/17/17 18:14) Comprehensive Metabolic Panel (02/17/17 18:14) Urinalysis - C+S If Indicated (02/17/17 18:14) Iv Access Insert/Monitor (02/17/17 18:14) Ecg Monitoring (02/17/17 18:14) Oximetry (02/17/17 18:14) Sodium Chloride 0.9% Flush (Ns Flush) (02/17/17 18:15) Ct Brain W/O Iv Contrast(Rout) (02/17/17 18:18) Labs Laboratory Tests Test 02/17/17 18:30 02/17/17 18:35 Urine Color YELLOW Urine Turbidity CLEAR Urine pH 5.5 Urine Specific [place] 1.025 Urine Protein TRACE mg/dL Urine Glucose (UA) NEG mg/dL Urine Ketones NEG mg/dL Urine Occult Blood NEG Urine Nitrite NEG Urine Bilirubin NEG Urine Urobilinogen LESS THAN 2.0 MG/DL Urine Leukocyte Esterase SMALL Urine RBC 1 /hpf Urine WBC 4 /hpf Urine Squamous Epithelial Cells 2 /hpf Urine Amorphous Sediment RARE Microscopic Urinalysis Comment CULT NOT INDICATED White Blood Count 13.3 TH/MM3 Red Blood Count 4.77 MIL/MM3 Hemoglobin 15.1 GM/DL Hematocrit 43.3 % Mean Corpuscular Volume 90.8 FL Mean Corpuscular Hemoglobin 31.6 PG Mean Corpuscular Hemoglobin Concent 34.8 % Red Cell Distribution Width 13.0 % Platelet Count 171 TH/MM3 Mean Platelet Volume 8.8 FL Neutrophils (%) (Auto) 95.1 % Lymphocytes (%) (Auto) 2.2 % Monocytes (%) (Auto) 2.5 % Eosinophils (%) (Auto) 0.1 % Basophils (%) (Auto) 0.1 % Neutrophils # (Auto) 12.6 TH/MM3 Lymphocytes # (Auto) 0.3 TH/MM3 Monocytes # (Auto) 0.3 TH/MM3 Eosinophils # (Auto) 0.0 TH/MM3 Basophils # (Auto) 0.0 TH/MM3 CBC Comment DIFF FINAL Differential Comment Blood Urea Nitrogen 22 MG/DL Creatinine 0.82 MG/DL Random Glucose 127 MG/DL Total Protein 7.9 GM/DL Albumin 3.6 GM/DL Calcium Level 8.7 MG/DL Alkaline Phosphatase 61 U/L Aspartate Amino Transf (AST/SGOT) 18 U/L Alanine Aminotransferase (ALT/SGPT) 17 U/L Total Bilirubin 0.7 MG/DL Sodium Level 137 MEQ/L Potassium Level 3.3 MEQ/L Chloride Level 103 MEQ/L Carbon Dioxide Level 26.3 MEQ/L Anion Gap 8 MEQ/L Estimat Glomerular Filtration Rate 74 ML/MIN MDM Medical Decision Making Medical Screen Exam Complete: Yes Emergency Medical Condition: Yes Interpretation(s) Last Impressions Head CT 02/17/17 1818 Signed Impressions: Service Date/Time: Friday, February 17, 2017 19:39 - CONCLUSION: Unremarkable study. Catherine Reyes MD 8:47 PM. WBC 13.3. 95 neutrophil. Potassium 3.3. UA is negative. Differential Diagnosis Differential diagnosis including migraine headache, tension headache, cluster headache, intracranial pathology, recurrent abdominal pain pelvic pain. Narrative Course 46-year-old female with headache, elevated blood pressure, persistent right lower quadrant abdominal pain. Patient was seen in emergency room for right low quadrant abdominal pain in the past and had CT scan and ultrasound done in the past. Diagnosis Primary Impression: Abdominal pain Qualified Codes: R10.31 - Right lower quadrant pain Additional Impression: Labile hypertension Patient Instructions: General Instructions Additional Instructions: Take medications as needed for pain. Follow-up with personal physician and student activities director. Return if worse. Continue with amlodipine 10 mg daily. Med/Other Pt SpecificInfo: Prescription(s) given Scripts Meloxicam (Mobic) 15 Mg Tab 15 MG PO DAILY for Pain, #30 TAB 0 Refills Prov: Nicolas Espinosa MD 02/17/17 Disposition: 01 DISCHARGE HOME Condition: Stable Nicolas Espinosa MD Feb 17, 2017 18:25
[2017-02-17 18:30] VITALS: BP 139/86; PULSE 99; RESP 19; TEMP 98.7; O2SAT 96
[2017-02-17 18:52] LABS: BLOOD, URINE NEG (NEG); COMMENT (UR) CULT NOT INDICATED; CULTURE IF INDICATED CULT NOT INDICATED; GLUCOSE,URINE NEG (NEG); KETONE, URINE NEG (NEG); NITRITE,URINE NEG (NEG); PH, URINE 5.5 (5.0-8.5); SQUAMOUS EPITHELIAL CELL URINE 2 /hpf (0-5); URINE COLOR YELLOW (YELLW/STRAW)
[2017-02-17 18:59] LABS: AUTOMATED NEUTROPHIL # 12.6 TH/MM3 (1.8-7.7); BASOPHIL % 0.1 % (0.0-2.0); EOSINOPHIL % 0.1 % (0.0-4.0); HEMATOCRIT 43.3 % (35.0-46.0); HEMO FLAGS DIFF FINAL; LYMPH % 2.2 % (9.0-44.0); LYMPHOCYTE # 0.3 TH/MM3 (1.0-4.8); MEAN CELL VOLUME 90.8 FL (80.0-100.0); MEAN CORPUSCULAR HEMOGLOBIN 31.6 PG (27.0-34.0); MEAN CORPUSCULAR HGB CONC 34.8 % (32.0-36.0); MONO % 2.5 % (0.0-8.0); NEUT % 95.1 % (16.0-70.0); PLATELET COUNT 171 TH/MM3 (150-450); RED BLOOD COUNT 4.77 MIL/MM3 (4.00-5.30); WHITE BLOOD COUNT 13.3 TH/MM3 (4.0-11.0)
[2017-02-17 19:13] LABS: ALT (GPT) 17 U/L (10-53); ANION GAP 8 MEQ/L (5-15); AST (GOT) 18 U/L (15-37); BICARBONATE 26.3 MEQ/L (21.0-32.0); BLOOD UREA NITROGEN 22 MG/DL (7-18); CHLORIDE 103 MEQ/L (98-107); GLOMERULAR FILTRATION RATE 74 ML/MIN (>89); POTASSIUM 3.3 MEQ/L (3.5-5.1); SODIUM (NA) 137 MEQ/L (136-145)
[2017-02-17 19:16] LABS: ALKALINE PHOSPHATASE 61 U/L (45-117); TOTAL BILIRUBIN ADULT 0.7 MG/DL (0.2-1.0)
--- NOTE | 2017-02-17 20:14 | RADRPT ---
EXAM DATE/TIME: 02/17/2017 19:39 [facility] COMPARISON: No previous studies available for comparison. INDICATIONS : Cephalgia. RADIATION DOSE: 32.48 CTDIvol (mGy) MEDICAL HISTORY : Hypertension. Seizures. Diabetes. SURGICAL HISTORY : None. ENCOUNTER: Initial ACUITY: 1 day PAIN SCALE: 8/10 LOCATION: cranial TECHNIQUE: Multiple contiguous axial images were obtained of the head. Using automated exposure control and adj ustment of the mA and/or kV according to patient size, radiation dose was kept as low as reasonably a chievable to obtain optimal diagnostic quality images. DICOM format image data is available electro nically for review and comparison. FINDINGS: There is no evidence for intracranial hemorrhage, mass effect, mass lesions, edema, or extra-axial fl uid collections. The visualized bony structures appear intact. The ventricles are normal size for t he patient's age. There are no signs of acute infarction for technique. CONCLUSION: Unremarkable study. Catherine Reyes MD on February 17, 2017 at 20:11 Board Certified Radiologist. This report was verified electronically.
[2017-02-17] MEDS ORDERED: MOBI15TA PO (20:53)
== END 2017-02-17 21:35 | disposition home or self-care (01) ==
LOC: NEPD 14:59
DX: R10.31 Right lower quadrant pain (principal); I10 Essential (primary) hypertension; R51 Headache; Z72.0 Tobacco use
CPT/HCPCS: 70450; 80053; 81001; 85025; 99284